=== PATIENT | male | born 1970 | race Caucasian/White ===

== ENCOUNTER 2016-05-13 16:46 | Emergency (ER) | payer OTHER ==
[~2016-05-13] VITALS: Ht 172.7 cm; Wt 68.0 kg
[2016-05-13 17:23] VITALS: BP 164/81
--- NOTE | 2016-05-13 17:58 | ED PSYCHIATRIC COMPLAINT ---
History of Present Illness General Chief Complaint: Psychiatric Related Complaint Stated Complaint: ANXEITY Source: patient Exam Limitations: no limitations Vital Signs & Intake/Output Vital Signs & Intake/Output Vital Signs Date Time Temp Pulse Resp B/P Pulse O2 O2 Flow FiO2 Ox Delivery Rate 05/13 1723 98.4 77 20 164/81 97 Room Air Allergies Coded Allergies: No Known Allergies (05/13/16) Reconcile Medications Clonidine HCl 0.1 MG TABLET 1 TAB PO TID WITHDRAWAL SYMPTOMS TAKE FOR THREE DAYS Hydroxyzine Pamoate (Vistaril) 50 MG CAPSULE 1 CAP PO QPM ANXIETY Triage Note: TRIAGE: PT TO ER C/C ANXIETY, STATES HE WAS ON SUBOXONE FOR 3 YEARS, WEANED SELF DOWN IN LAST 3 WEEKS. WAS TAKING 16 MG. FEELS THE ANXIETY STARTED AFTER THE LAST DOSE OF SUBOXONE WHICH WAS 4 DAYS AGO. DENIES SI/HI. DENIES ETOH OR SUBSTANCE ABUSE. PT CALM/COOPERATIVE AT TRIAGE. Triage Nurses Notes Reviewed? yes Onset: Gradual Duration: constant Timing: recent history Severity: moderate Severity Numbers: 5 HPI: Patient is a 46-year-old male with a past medical history of opiate dependency who has been prescribed Suboxone and in every day smoker who states that a week ago he decided to discontinue smoking and 4 days ago patient decided to self discontinue the Suboxone. Patient states that initially he had nausea and vomiting on the first day however in the past 3 days patient has had significant anxiety and insomnia. Patient hasn't taken any medications for symptoms. Denies any illicit drug use. Denies any suicidal or homicidal ideation. Denies any visual or auditory hallucinations. Denies any other occasions at this time. Patient states that he has been followed by psychiatrist was [place] only and patient also does not have a primary care doctor. Patient denies any fever chills chest pain and arm pain jaw pain nausea vomiting. Patient can tolerate by mouth. (AKIN ISLAS) Past History Travel History Traveled to [place] past 21 day No Medical History Any Pertinent Medical History? see below for history Neurological: NONE EENT: NONE Cardiovascular: NONE Respiratory: NONE Gastrointestinal: NONE Hepatic: NONE Renal: NONE Musculoskeletal: NONE Psychiatric: anxiety, opioid dependence Endocrine: NONE Blood Disorders: NONE Cancer(s): NONE DIETIST/Reproductive: NONE Surgical History Surgical History: non-contributory Psychosocial History What is your primary language Tuvaluan Tobacco Use: Quit <30 days ago ETOH Use: denies use Illicit Drug Use: denies illicit drug use Family History Hx Contributory? No (AKIN ISLAS) Review of Systems Review of Systems Constitutional: Reports: no symptoms. EENTM: Reports: no symptoms. Respiratory: Reports: no symptoms. Cardiovascular: Reports: no symptoms. GI: Reports: see HPI. Genitourinary: Reports: no symptoms. Musculoskeletal: Reports: no symptoms. Skin: Reports: no symptoms. Neurological/Psychological: Reports: see HPI, anxiety. Hematologic/Endocrine: Reports: no symptoms. Immunologic/Allergic: Reports: no symptoms. All Other Systems: Reviewed and Negative (AKIN ISLAS) Physical Exam Physical Exam General Appearance: no apparent distress, alert, comfortable Neurological/Psychiatric: no motor/sensory deficits Appearance/Memory/Insight: appropriate appearance, appropriate insight, denies illness Behavoir/Eye Contact/Speech: cooperative Thoughts/Hallucinations: no apparent hallucination Comments: Well-developed well-nourished person in no acute distress HEENT: Normal EENT exam, extraocular motion intact, no nystagmus. Pupils equally round and reactive to light and accommodation. Nose is atraumatic. External auditory canal and Tympanic membranes clear. Pharynx normal. No swelling or edema. Neck: Supple, no lymphadenopathy, normal range of motion without pain or tenderness Back: Nontender, no CVA tenderness. Cardiovascular: Regular rate and rhythms no murmurs rubs or gallops, normal JVP Respiratory: Chest nontender. No respiratory distress.breath sounds clear to auscultation bilaterally Abdomen: Soft, nontender nondistended, no appreciable organomegaly. Normal bowel sounds. No ascites Extremity: No edema, no calf tenderness to palpation, normal and equal pulses. Neuro: Alert oriented x3, motor sensory normal, cranial nerves II through XII grossly intact. Skin: No appreciable rash on exposed skin, skin is warm and dry. Psych: Mood and affect is normal, memory and judgment is normal. SAD PERSONS Done? patient not suicidal (AKIN ISLAS) Progress Differential Diagnosis: drug intoxication, drug overdose, drug withdrawal, electrolyte abnormality, encephalitis, hypoglycemia, hypothyroidism, IC hem/mass /tumor, meningitis Plan of Care: Patient currently denies any suicide or homicidal ideation. Denies any current illicit drug use does not appear to be intoxicated. I gave patient [facility] practice referral to establish a primary care doctor and I also gave patient a psychiatry referral to establish a new psychiatrist and stressed importance to follow-up first thing tomorrow. Patient was given clonidine for symptoms denies any current nausea and is able tolerate by mouth and patient was given Vistaril for insomnia. On discharge patient looks WELL, NAD and will comply with discharge instructions and had no questions. (AKIN ISLAS) Departure Departure Disposition: HOME OR SELF CARE Condition: Stable Clinical Impression Primary Impression: Opiate withdrawal Secondary Impressions: Anxiety Referrals: PATIENT HAS NO PRIMARY CARE DR (PCP/Family) Additional Instructions: As discussed please begin the prescription of clonidine for your symptoms as directed for the full course. Begin the prescription of Vistaril to improve your symptoms. Use this as directed. He had been given a primary care doctor's appointment in the emergency room referral please call tomorrow to establish a doctor from the list provided to you. YOU also been given a psychiatry referral list please call tomorrow to establish a new psychiatrist. Prescription is awaiting at [facility] pharmacy. If symptoms worsen return to emergency room. Departure Forms: Customer Survey General Discharge Information Prescriptions: Current Visit Scripts Hydroxyzine Pamoate (Vistaril) 1 CAP PO QPM #10 CAP Clonidine HCl 1 TAB PO TID #9 TAB TAKE FOR THREE DAYS (AKIN ISLAS) PA/GENERAL DENTIST Co-Sign Statement Statement: ED Attending supervision documentation- [] I saw and evaluated the patient. I have also reviewed all the pertinent lab results and diagnostic results. I agree with the findings and the plan of care as documented in the PA's/GENERAL DENTIST's documentation. [X] I have reviewed the ED Record and agree with the PA's/GENERAL DENTIST's documentation. [] Additions or exceptions (if any) to the PAs/GENERAL DENTIST's note and plan are summarized below: [] (FER LOAIZA,CHRISTEN)
[2016-05-13] MEDS ORDERED: CLONIDINE HCL0.1 MG PO (18:47)
[2016-05-13] MEDS ORDERED: VISTARIL50 M1 PO (18:47)
== END 2016-05-13 19:04 ==
LOC: ERH 16:46
DX: F11.20 Opioid dependence, uncomplicated (principal); F41.9 Anxiety disorder, unspecified